=== PATIENT | female | born 1990 | race Caucasian/White ===

== ENCOUNTER 2024-02-21 11:44 | Emergency (ER) | payer BC ==
[~2024-02-21] VITALS: Ht 162.6 cm; Wt 87.3 kg
[2024-02-21 11:50] VITALS: TEMP 98.4
[2024-02-21] MEDS: morphine 4 MG/ML inj SYRINge IV ONE (13:42)
[2024-02-21] MEDS: ondansetron/PF 4mg/2ml inj IV ONE (13:42)
[2024-02-21] MEDS: normal saline 1000ML IV soln IVB ONE (13:43)
[2024-02-21] MEDS: ketorolac trometh. 30mg/ml inj. IV ONE (13:43)
[2024-02-21] MEDS: orphenadrine citrate 60mg/2ml inj. IM ONE (13:43)
[2024-02-21] MEDS ORDERED: TIZA4TAB11 PO (14:05)
[2024-02-21] MEDS ORDERED: NAPR500T6 PO (14:05)
[2024-02-21 15:34] VITALS: BP 126/77; PULSE 67; RESP 17; O2SAT 100
== END 2024-02-21 15:36 | disposition home or self-care (01) ==
LOC: ER 11:45
DX: S29.012A Strain of muscle and tendon of back wall of thorax, initial encounter (principal); X58.XXXA Exposure to other specified factors, initial encounter; Y93.89 Activity, other specified; Y92.89 Other specified places as the place of occurrence of the external cause; Y99.8 Other external cause status
CPT/HCPCS: 71045; 93005; 96361; 96372; 96374; 96375; 99284; J1885; J2270; J2360; J2405; J7030